=== PATIENT | male | born 1965 | race Caucasian/White ===

== ENCOUNTER 2021-05-06 17:15 | Emergency (ER) | payer OTHER, SELFPAY ==
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
[2021-05-06 17:23] VITALS: BP 151/91; BP 160/90; PULSE 118; PULSE 120; RESP 20; TEMP 37.1; O2SAT 96; BMI 28.1
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
[2021-05-06] MEDS: Acetaminophen 325 MG TABLET 975 MG PO (18:49)
[2021-05-06 20:47] VITALS: BP 134/83; PULSE 105; RESP 16; O2SAT 98
== END 2021-05-06 21:12 | disposition home or self-care (01) ==
PROVIDERS: Emergency Provider Emergency Medicine
DX: S16.1XXA Strain of muscle, fascia and tendon at neck level, initial encounter (principal); M54.5 Low back pain; M54.2 Cervicalgia; G44.309 Post-traumatic headache, unspecified, not intractable; V43.52XA Car driver injured in collision with other type car in traffic accident, initial encounter; Y93.9 Activity, unspecified; Y92.410 Unspecified street and highway as the place of occurrence of the external cause; Y99.9 Unspecified external cause status; Z79.899 Other long term (current) drug therapy
CPT/HCPCS: 70450; 71250; 72125; 99284

== ENCOUNTER → 2021-12-03 08:45 | Outpatient (BNVA) | payer OTHER, SELFPAY | PROVIDERS: Visit Provider Internal Medicine | DX: M47.812 Spondylosis without myelopathy or radiculopathy, cervical region (principal); S13.4XXD Sprain of ligaments of cervical spine, subsequent encounter | CPT/HCPCS: 99202 ==

== ENCOUNTER → 2022-02-21 10:58 | Outpatient (BNVA) | payer OTHER, SELFPAY | PROVIDERS: PCP Physician Assistant Medical; Visit Provider Internal Medicine | DX: S22.39XD Fracture of one rib, unspecified side, subsequent encounter for fracture with routine healing (principal); S13.4XXD Sprain of ligaments of cervical spine, subsequent encounter; M47.812 Spondylosis without myelopathy or radiculopathy, cervical region | CPT/HCPCS: 99212 ==

== ENCOUNTER 2022-03-14 09:35 | Outpatient (REF) | payer OTHER, SELFPAY ==
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
== END 2022-03-14 09:36 | disposition home or self-care (01) ==
LOC: HO.XRAY 09:35
PROVIDERS: PCP Physician Assistant Medical; Visit Provider Internal Medicine
DX: M47.812 Spondylosis without myelopathy or radiculopathy, cervical region (principal); S13.4XXA Sprain of ligaments of cervical spine, initial encounter; S22.39XA Fracture of one rib, unspecified side, initial encounter for closed fracture
CPT/HCPCS: 71110

== ENCOUNTER → 2022-04-11 15:28 | Outpatient (BNVA) | payer OTHER, SELFPAY | PROVIDERS: PCP Physician Assistant Medical; Visit Provider Internal Medicine | DX: S13.4XXA Sprain of ligaments of cervical spine, initial encounter (principal); M47.812 Spondylosis without myelopathy or radiculopathy, cervical region; M75.81 Other shoulder lesions, right shoulder | CPT/HCPCS: 99212 ==

== ENCOUNTER → 2022-05-13 08:57 | Outpatient (BNVA) | payer OTHER, SELFPAY | PROVIDERS: PCP Physician Assistant Medical; Visit Provider Internal Medicine | DX: M75.81 Other shoulder lesions, right shoulder (principal); S13.4XXA Sprain of ligaments of cervical spine, initial encounter; M47.812 Spondylosis without myelopathy or radiculopathy, cervical region; M47.816 Spondylosis without myelopathy or radiculopathy, lumbar region | CPT/HCPCS: 99212 ==